=== PATIENT | male | born 1985 | race Caucasian/White ===

== ENCOUNTER 2017-12-26 01:13 | Emergency (ER) | payer MEDICAID ==
[2017-12-26] MEDS: predniSONE 20 MG TAB PO (01:31)
[2017-12-26] MEDS: ALBUTEROL 0.083% (NEB) 2.5 MG/3 ML AMP NEB (01:38)
[2017-12-26] MEDS: IPRATROPIUM (NEB) 0.5 MG/2.5 ML AMP NEB (01:38)
== END 2017-12-26 03:45 | disposition home or self-care (01) ==
LOC: E/R 01:13
DX: J45.901 Unspecified asthma with (acute) exacerbation (principal)
CPT/HCPCS: 71045; 94664; 99284-25

== ENCOUNTER 2019-01-12 20:58 | Emergency (ER) | payer MEDICAID ==
[2019-01-13] MEDS: DEXAMETHASONE 10 MG/ML 1 ML INJ IM (00:08)
[2019-01-13] MEDS: IPRATROPIUM (NEB) 0.5 MG/2.5 ML AMP NEB (00:26)
[2019-01-13] MEDS: ALBUTEROL 0.083% (NEB) 2.5 MG/3 ML AMP NEB ×2 (00:26→02:04)
== END 2019-01-13 02:41 | disposition home or self-care (01) ==
LOC: FTE 01-13 02:41
DX: J45.21 Mild intermittent asthma with (acute) exacerbation (principal)
CPT/HCPCS: 71045; 87400; 94640; 94664; 96372; 99284-25